=== PATIENT | female | born 1950 | race Caucasian/White ===

== ENCOUNTER → 2019-10-07 09:09 | Outpatient (BNVA) | payer MEDICARE, OTHER, SELFPAY | PROVIDERS: Family Provider Family Medicine; Visit Provider Nurse Practitioner Family | DX: R07.89 Other chest pain (principal); I10 Essential (primary) hypertension; R53.83 Other fatigue; E78.5 Hyperlipidemia, unspecified; R42 Dizziness and giddiness; M54.2 Cervicalgia | CPT/HCPCS: 80053; 80061; 84443; 85025 ==

== ENCOUNTER → 2019-10-12 09:22 | Outpatient (BNVA) | payer MEDICARE, OTHER, SELFPAY | PROVIDERS: Family Provider Family Medicine; Visit Provider Nurse Practitioner Family | DX: R79.89 Other specified abnormal findings of blood chemistry (principal); I10 Essential (primary) hypertension; H93.90 Unspecified disorder of ear, unspecified ear; R74.8 Abnormal levels of other serum enzymes; R89.9 Unspecified abnormal finding in specimens from other organs, systems and tissues | CPT/HCPCS: 84075; 84439; 84481 ==

== ENCOUNTER 2019-11-08 07:49 | Outpatient (CLI) | payer MEDICARE, OTHER, SELFPAY ==
--- NOTE | 2019-11-08 08:45 | USCV_ITS ---
Elham Echevarria Age: 69 Gender: F : 1950 Exam Date: 11/08/2019 08:03 Ordering Phys: Dulce SamuelsP Technologist: Exam Location: [facility] [place] Indication: vertigo Risk Factors: Previous Vascular Surgery: Right Brachial BP: / Left Brachial BP: / Right Left Velocity (cm/s) Spectral Plaque Velocity (cm/s) Spectral Plaque Syst/Diast Broadening Syst/Diast Broadening 74.10/ 13.10 Prox CCA 72.30 / 16.70 62.80/ 17.80 Mid CCA 61.40 / 17.10 59.00/ 17.90 Distal CCA 56.70 / 20.20 45.90/ 16.00 Prox ICA 53.40 / 24.60 55.50/ 23.00 Mid ICA 93.10 / 35.90 57.70/ 24.60 Distal ICA 37.40 / 17.10 46.50 ECA 63.00 0.88 ICA/CCA 1.52 Antegrade Vertebral Antegrade 31.50/ 10.70 cm/s 50.20/ 20.80 cm/s Tri Subclavian Tri 46.40 58.20 FINDINGS Minimal plaques at the bifurcations bilaterally Intimal thickening in the common carotid arteries bilaterally Antegrade flow in the vertebral arteries bilaterally Normal Doppler flow velocities in the external carotid and subclavian arteries bilaterally CONCLUSIONS Minimal plaques bilaterally at the bifurcations and proximal carotid arteries. No significant stenosis, based on the above findings Dr Alana Scott MD [facility] (Electronically Signed) Final Date: 08 November 2019 19:32 S
== END 2019-11-08 07:50 | disposition home or self-care (01) ==
LOC: US 07:53
PROVIDERS: PCP Family Medicine; Visit Provider Nurse Practitioner Family
DX: R42 Dizziness and giddiness (principal)
CPT/HCPCS: 93880

== ENCOUNTER 2019-12-03 07:57 | Outpatient (CLI) | payer MEDICARE, OTHER, SELFPAY ==
--- NOTE | 2019-12-03 08:08 | US_ITS ---
WS: [id number] THYROID ULTRASOUND HISTORY: thyroid tenderness COMPARISON: None available. Right lobe: 4.2 cm x 1.2 cm x 1.1 cm. Volume: 2.9 cm3. Normal size gland. There are a few small nodules which are cystic and solid scattered throughout the gland. These are likely colloid cysts. The largest measuring 6 x 3 x 4 mm. Left lobe: 4.0 cm x 1.0 cm x 0.9 cm. Volume: 1.8 cm3. Normal size gland. There are a few scattered colloid cysts. The largest measuring 5 x 3.4 mm. Isthmus: 0.2 cm. US/US thyroid [id number] IMPRESSION: 1. No evidence for acute thyroiditis. 2. Subcentimeter solid and mixed cystic and solid nodules. Majority of these a re colloid cysts. No suspicious nodule for biopsy to be performed at this time.
== END 2019-12-03 07:58 | disposition home or self-care (01) ==
PROVIDERS: PCP Family Medicine; Visit Provider Nurse Practitioner Family
DX: E07.9 Disorder of thyroid, unspecified (principal)
CPT/HCPCS: 76536

== ENCOUNTER 2020-09-25 08:55 | Outpatient (CLI) | payer MEDICARE, OTHER, SELFPAY ==
[2020-09-25] MEDS: iohexol 300 mg/mL 50 mL Btl PO (09:13)
[2020-09-25 10:27] LABS: Blood Urea Nitrogen 12 mg/dL (8-23); Glomerular Filtration Rate 71.3 mL/min (90-130)
[2020-09-25] MEDS: iohexol 300 mg/mL 100 mL Btl IV (10:39)
--- NOTE | 2020-09-25 11:00 | CT_ITS ---
WS: [id number] CT ABDOMEN AND PELVIS WITH CONTRAST HISTORY: R10.9 - Unspecified abdominal pain TECHNIQUE: Imaging performed of the abdomen and pelvis with IV contrast. Single phase imaging of the abdomen. Coronal and sagittal reformats are submitted. All CT scans at [facility] use at least one of these dose optimization techniques: automated exposure control; mA and/or kV adjustment per patient size (includes targeted exams where dose is matched to clinical indication); or iterativ e reconstruction. IV CONTRAST: Omnipaque 300; 95 mL IV. Oral contrast: Yes. DLP: 1134.39 mGycm COMPARISON: None available. Lower thorax: Lung bases are clear. Heart is normal size. No hiatal hernia. Liver/biliary system: Normal size with no intrahepatic dilatation. Gallbladder: Status post cholecystectomy. Pancreas: Normal size pancreas and pancreatic duct. No adjacent inflammation. Spleen: Normal size spleen. No mass or infarct. Adrenal glands: Normal. Right kidney: Normal size RIGHT kidney. Extrarenal pelvis. Ureter tapers normally with no obstructing stone or mass identified. Lobulated cyst measuring 1.9 x 2.4 cm from the mid kidney. No solid mass. Left kidney: No solid mass or obstruction. Small extrarenal pelvis. Aorta: Mild atherosclerosis with no aneurysm. Lymphadenopathy: None. Free fluid: None. GI tract: Diffuse moderate constipation. The appendix is normal. Numerous diverticula in the sigmoid colon without evidence for acute diverticulitis. No GI tract obstruction. There is very mild narrowin g of the mid transverse colon but no definite mass or obstructive pattern. This area can be further e valuated by colonoscopy. Abdominal wall: Unremarkable abdominal wall. No hernia. Pelvis: Anteverted uterus. There is mild heterogeneity of variable density within the central uterus. No pelvic mass. Bones: L2 hemangioma. Lumbar scoliosis. CT/CT abdomen pelvis w con* [id number] IMPRESSION: 1. Mild diffuse constipation. 2. Sigmoid diverticulosis without evidence for acute diverticulitis. 3. There is very slight change in caliber in the mid transverse colon but no d iscrete mass. This may be an area of peristalsis. Early neoplasm not excluded. Consider follow-up colonoscopy. 4. Prior cholecystectomy. 5. RIGHT renal cyst. 6. Heterogeneity within the central uterus. Cannot exclude endometrial abnorma lity or fibroid. Consider transvaginal pelvic ultrasound.
== END 2020-09-25 08:56 | disposition home or self-care (01) ==
PROVIDERS: PCP Nurse Practitioner Family; Visit Provider Nurse Practitioner Family
DX: R10.9 Unspecified abdominal pain (principal); K59.00 Constipation, unspecified; K57.30 Diverticulosis of large intestine without perforation or abscess without bleeding; Z90.49 Acquired absence of other specified parts of digestive tract; Q61.01 Congenital single renal cyst
CPT/HCPCS: 74177; 82565; 84520; Q9967

== ENCOUNTER 2020-11-01 13:54 | Outpatient (CLI) | payer MEDICARE, OTHER, SELFPAY ==
--- NOTE | 2020-11-01 13:59 | US_ITS ---
WS: [id number] TRANSVAGINAL PELVIC ULTRASOUND HISTORY: pelvic pain COMPARISON: 09/25/2020 Uterus: 5.8 cm x 4.3 cm x 3.9 cm. Anteverted small caliber uterus. There is a large amount shadowing from the myometrium obscuring portions of the endometrium. Multiple fibroids are identified. The larg est is in the RIGHT uterus measuring 3.3 x 3.5 x 2.6 cm. Smaller fibroid with shadowing and calcifica tion in the LEFT uterus measuring 1.2 x 1.5 x 1.4 cm. Endometrium: 0.4 cm. Endometrium is poorly seen throughout its entirety due to the marked shadowing f rom the fibroids. Endometrium is being displaced posteriorly by the fibroids. Right ovary: 1.4 cm x 1.1 cm x 1.6 cm. Small caliber ovary appropriate for age. Normal vascularity. N o additional adnexal mass. Left ovary: 2.0 cm x 0.9 cm x 1.9 cm. Small caliber ovary appropriate for age. Normal vascularity. No additional mass. Minimal amount of free fluid in the cul-de-sac. US/US transvaginal [id number] IMPRESSION: 1. Fibroid uterus. Changes recently seen on CT correspond to numerous fibroids . The largest measures 3.3 x 3.5 x 2.6 cm. 2. Limited visualization of the endometrium due to the fibroids. Endometrium i s being displaced by the fibroids.
== END 2020-11-01 13:55 | disposition home or self-care (01) ==
LOC: RAD 13:57
PROVIDERS: PCP Nurse Practitioner Family; Visit Provider Nurse Practitioner Family
DX: R10.2 Pelvic and perineal pain (principal); D25.9 Leiomyoma of uterus, unspecified
CPT/HCPCS: 76830

== ENCOUNTER → 2020-11-09 08:46 | Outpatient (BNVA) | payer MEDICARE, OTHER, SELFPAY | PROVIDERS: PCP Nurse Practitioner Family; Visit Provider Surgery | DX: R10.9 Unspecified abdominal pain (principal); Z20.822 Contact with and (suspected) exposure to COVID-19 | CPT/HCPCS: 87635 ==

== ENCOUNTER 2020-11-16 08:52 | Day surgery (SDC) | payer MEDICARE, OTHER, SELFPAY ==
[2020-11-13 12:51] VITALS: BMI 25.7
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
[2020-11-16 09:56] VITALS: BP 146/93; PULSE 56; RESP 16; TEMP 36.1; O2SAT 95
[2020-11-16] MEDS: sodium chloride 0.9% 1,000 ML 30 ML IV (10:12)
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
[2020-11-16 12:15] VITALS: BP 103/74; PULSE 58; RESP 16; TEMP 36.1; O2SAT 97
--- NOTE | 2020-11-16 14:46 | ANE.PACU2 ---
Inpatient post-anesthesia follow up: Airway intact: Yes Vital signs: Temperature 97 F Pulse Rate 58 Respiratory Rate 16 Blood Pressure 103/74 Pulse Oximetry 97 Oxygen Delivery Me thod Room Air Oxygen Flow Rate Fraction of Inspir ed Oxygen Hydration adequate: Yes Nausea and vomiting: No Pain level: 2 Mental status: Baseline
== END 2020-11-16 12:50 | disposition home or self-care (01) ==
PROVIDERS: PCP Nurse Practitioner Family; Visit Provider Surgery
PROC: 0DJD8ZZ Inspection of Lower Intestinal Tract, Via Natural or Artificial Opening Endoscopic (ICD-10-PCS; CPT 45378; principal; 2020-11-16 11:00)
DX: R10.9 Unspecified abdominal pain (principal); D12.4 Benign neoplasm of descending colon; D12.0 Benign neoplasm of cecum; K57.30 Diverticulosis of large intestine without perforation or abscess without bleeding; K64.8 Other hemorrhoids; I25.10 Atherosclerotic heart disease of native coronary artery without angina pectoris; Z95.5 Presence of coronary angioplasty implant and graft; E78.5 Hyperlipidemia, unspecified
CPT/HCPCS: 45380; 88305; 96360; 96361; J2704; J7030

== ENCOUNTER → 2021-06-07 15:53 | Outpatient (BNVA) | payer MEDICARE, OTHER, SELFPAY | PROVIDERS: PCP Nurse Practitioner Family; Visit Provider Nurse Practitioner Family | DX: J06.9 Acute upper respiratory infection, unspecified (principal); J01.90 Acute sinusitis, unspecified | CPT/HCPCS: 87400; 87635 ==

== ENCOUNTER 2021-11-13 11:19 | Outpatient (CLI) | payer MEDICARE, OTHER, SELFPAY ==
--- NOTE | 2021-11-13 12:15 | USCV_ITS ---
Elham Echevarria Age: 71 Gender: F : 1950 Exam Date: 11/13/2021 11:43 Ordering Phys: Dulce Samuels-Zahra NERI Technologist: MONTY [place] [facility] [place]ication: Peripheral vascular disease Risk Factors: Previous Vascular Surgery: RIGHT LEFT BP: 130.0 / 80.00 BP: 124.0/ 76.00 0 0 Waveform Velocity (cm/s) Velocity (cm/s) Waveform Triphasic 87.0 Iliac Prox Triphasic 81.6 Iliac Mid Triphasic 115.8 Iliac Distal Triphasic 77.2 SONG LYRICIST Triphasic 88.2 SFA Prox Triphasic 69.5 SFA Mid Triphasic 49.9 SFA Dist Triphasic 33.9 POP Triphasic 45.7 ADJUNCT LECTURER Triphasic 27.5 DPA 1.0 EZEQUIEL FINDINGS Rt ADJUNCT LECTURER 130 Rt DPA 120 Normal Doppler flow pattern and Doppler flow velocities Resting EZEQUIEL 1.0 on the right side. CONCLUSIONS Normal resting EZEQUIEL and Doppler signals suggesting no significant arterial obstruction, in the above-mentioned arteries of the right lower extremity Dr Alana Scott MD [facility] (Electronically Signed) Final Date: 14 November 2021 20:07 S
== END 2021-11-13 11:20 | disposition home or self-care (01) ==
LOC: RAD 11:23
PROVIDERS: PCP Nurse Practitioner Family; Visit Provider Nurse Practitioner Family
DX: I73.9 Peripheral vascular disease, unspecified (principal); M79.604 Pain in right leg
CPT/HCPCS: 93926

== ENCOUNTER 2022-01-08 12:50 | Outpatient (CLI) | payer MEDICARE, OTHER, SELFPAY ==
--- NOTE | 2022-01-08 13:45 | MR_ITS ---
WS: [id number] MRI RIGHT LOWER LEG WITHOUT AND WITH GADOLINIUM ENHANCEMENT. INDICATION: Pain in RIGHT lower leg TECHNIQUE: Coronal T1, coronal STIR, sagittal STIR, sagittal T1, axial T2, axial PD, axial T1 and cor onal T1 and sagittal T1 post gadolinium imaging with fat saturation technique. FINDINGS: Normal fatty bone marrow signal in the tibia and fibula. No edema. No cystic or solid lesions. No abn ormal gadolinium enhancement. Fibula is normal in appearance. Normal visualized intramuscular and sub cutaneous soft tissues. No evidence of metastatic disease. MR/MR lower leg RT wo/w con [id number] IMPRESSION: No suspicious findings in the RIGHT lower leg.
[2022-01-08] MEDS: gadobenate dimeglumine 20 mL vial IV (14:02)
== END 2022-01-08 12:51 | disposition home or self-care (01) ==
LOC: RAD 12:51
PROVIDERS: PCP Nurse Practitioner Family; Visit Provider Nurse Practitioner Family
DX: M79.604 Pain in right leg (principal); Q85.00 Neurofibromatosis, unspecified
CPT/HCPCS: 73720

== ENCOUNTER → 2022-09-04 09:34 | Outpatient (BNVA) | payer MEDICARE, OTHER, SELFPAY | PROVIDERS: PCP Nurse Practitioner Family; Visit Provider Nurse Practitioner Family | DX: M25.50 Pain in unspecified joint (principal); M32.9 Systemic lupus erythematosus, unspecified; I10 Essential (primary) hypertension; E04.1 Nontoxic single thyroid nodule | CPT/HCPCS: 80053; 80061; 84443; 86038; 86431 ==

== ENCOUNTER 2022-09-24 06:17 | Outpatient (CLI) | payer MEDICARE, OTHER, SELFPAY ==
--- NOTE | 2022-09-24 06:30 | US_ITS ---
WS: [id number] THYROID ULTRASOUND HISTORY: E04.1 - Nontoxic single thyroid nodule COMPARISON: 12/03/2019 Right lobe: 1.1 cm x 1.4 cm x 4.6 cm (w x ap x l). Volume: 3.5 cm3. Normal size gland. There are a few scattered nodules which noted on the prior study. The largest is m ixed cystic and solid in the mid gland measuring 6 x 4 x 6 mm. No increased vascularity. No echogenic foci. Left lobe: 1.4 cm x 1.0 cm x 3.9 cm (w x ap x l). Volume: 2.6 cm3. Normal size gland. Hypoechoic nodule with mixed cystic and solid components in the mid LEFT thyroid m easures 10 x 7 x 12 mm. This nodule has slightly increased in size and there is a central mural nodul e with increased vascularity. No additional suspicious or enlarging nodules. Isthmus: 0.2 cm. US/US thyroid [id number] IMPRESSION: 1. Mixed cystic solid nodule in the mid LEFT thyroid. Fine-needle aspiration i s recommended due to the mural nodule with increased vascularity. This nodule h as increased in size. Recommend ultrasound-guided FNA. 2. No additional suspicious or enlarging thyroid nodules.
== END 2022-09-24 06:18 | disposition home or self-care (01) ==
PROVIDERS: PCP Nurse Practitioner Family; Visit Provider Nurse Practitioner Family
DX: E04.1 Nontoxic single thyroid nodule (principal)
CPT/HCPCS: 76536

== ENCOUNTER → 2022-11-27 10:16 | Outpatient (BNVA) | payer MEDICARE, OTHER, SELFPAY | PROVIDERS: PCP Nurse Practitioner Family; Visit Provider Internal Medicine Cardiovascular Disease | DX: E78.5 Hyperlipidemia, unspecified (principal); I10 Essential (primary) hypertension; Z79.899 Other long term (current) drug therapy | CPT/HCPCS: 80048; 80061; 84450; 84460 ==

== ENCOUNTER → 2022-12-19 09:32 | Outpatient (BNVA) | payer MEDICARE, OTHER, SELFPAY | PROVIDERS: PCP Nurse Practitioner Family; Visit Provider Internal Medicine Rheumatology | DX: Z79.899 Other long term (current) drug therapy (principal); R76.8 Other specified abnormal immunological findings in serum; M19.90 Unspecified osteoarthritis, unspecified site; M25.50 Pain in unspecified joint; M70.61 Trochanteric bursitis, right hip; M70.62 Trochanteric bursitis, left hip; Y93.9 Activity, unspecified | CPT/HCPCS: 36415; 80076; 82306; 85025; 85651; 86140; 86160; 86162; 86200; 86235; 86255; 86376; 86800; 99204 ==

== ENCOUNTER → 2023-02-03 14:47 | Outpatient (BNVA) | payer MEDICARE, OTHER, SELFPAY | PROVIDERS: PCP Nurse Practitioner Family; Visit Provider Internal Medicine Rheumatology | DX: M70.61 Trochanteric bursitis, right hip (principal); M70.62 Trochanteric bursitis, left hip | CPT/HCPCS: 20610; J1030 ==

== ENCOUNTER → 2023-02-07 10:01 | Outpatient (BNVA) | payer MEDICARE, OTHER, SELFPAY | PROVIDERS: PCP Nurse Practitioner Family; Referring Provider Nurse Practitioner Family; Visit Provider Internal Medicine | DX: E04.1 Nontoxic single thyroid nodule (principal); E03.8 Other specified hypothyroidism; I10 Essential (primary) hypertension | CPT/HCPCS: 36415; 84439; 84443; 99204 ==

== ENCOUNTER → 2023-02-25 09:57 | Outpatient (BNVA) | payer MEDICARE, OTHER, SELFPAY | PROVIDERS: PCP Nurse Practitioner Family; Visit Provider Internal Medicine Rheumatology | DX: Z79.899 Other long term (current) drug therapy (principal); R76.8 Other specified abnormal immunological findings in serum; M25.50 Pain in unspecified joint; Q85.00 Neurofibromatosis, unspecified; M25.551 Pain in right hip; M25.552 Pain in left hip | CPT/HCPCS: 99214 ==

== ENCOUNTER 2023-03-12 08:11 | Outpatient (CLI) | payer MEDICARE, OTHER, SELFPAY ==
--- NOTE | 2023-03-12 09:30 | US_ITS ---
WS: [id number] ULTRASOUND-GUIDED LEFT THYROID NODULE FNA HISTORY: E04.1 - Nontoxic single thyroid nodule Procedure, risks, and complications were explained to the patient. Consent has been obtained. Prior imaging studies were reviewed including 09/24/2022 and 12/03/2019. The skin is cleansed with ChloraPrep and anesthetized with 1% buffered lidocaine. FNA performed with 25 gauge needles. lead technologist in cytogenetics is present to fix slides. There is a small amount of bleeding in the intramural cystic nodule in the LEFT thyroid after the ini tial biopsy. 3 attempts at FNA were performed. Intranodular bleeding slightly increased during the pr ocedure. Patient was observed for 15 minutes post procedure with no additional bleeding. IMPRESSION: Uncomplicated FNA of a LEFT thyroid nodule. Final pathology results pending.
== END 2023-03-12 08:12 | disposition home or self-care (01) ==
PROVIDERS: PCP Nurse Practitioner Family; Visit Provider Internal Medicine
DX: E04.1 Nontoxic single thyroid nodule (principal); E03.8 Other specified hypothyroidism
CPT/HCPCS: 10005; 88173

== ENCOUNTER 2023-04-05 09:14 | Outpatient (CLI) | payer MEDICARE, OTHER, SELFPAY ==
[2023-04-05 09:50] LABS: Basophils % 0.4 %; Eosinophils # 0.1 10^3/uL (0.0-0.8); Hematocrit 36.1 % (36-47); Lymphocytes # 1.8 10^3/uL (0.8-4.8); Lymphocytes % 35.3 %; Mean Corpuscular HGB Conc 32.4 g/dL (30-55); Mean Corpuscular Hemoglobin 30.3 pg (27-33); Mean Corpuscular Volume 93.5 fl (85-98); Mean Platelet Volume 11.3 fL (7.4-10.4); Monocytes # 0.4 10^3/uL (0.2-0.9); Monocytes % 7.5 %; Neutrophils % 55.6 %; Nucleated Red Blood Cells % 0 %; Platelet Count 158 10^3/cmm (157-399); Red Blood Count 3.86 10^6/uL (3.85-5.65); Red Cell Distribution Width 13.5 % (12.1-15.1); White Blood Count 5.04 10^3/uL (3.29-11.43)
== END 2023-04-05 09:15 | disposition home or self-care (01) ==
PROVIDERS: PCP Nurse Practitioner Family; Visit Provider Internal Medicine Rheumatology
DX: M25.50 Pain in unspecified joint (principal); Q85.00 Neurofibromatosis, unspecified; R76.8 Other specified abnormal immunological findings in serum; Z79.899 Other long term (current) drug therapy
CPT/HCPCS: 36415; 85025

== ENCOUNTER 2023-08-05 08:40 | Outpatient (CLI) | payer MEDICARE, OTHER, SELFPAY ==
--- NOTE | 2023-08-05 08:47 | XRR_ITS ---
PROCEDURE INFORMATION: Exam: XR Left Foot Exam date and time: 08/05/2023 9:05 AM Age: 72 years old Clinical indication: Pain; Foot; Left; Additional info: M79.672 - pain in left foot TECHNIQUE: Imaging protocol: Radiologic exam of the left foot. Views: 3 or more views. COMPARISON: No relevant prior studies available. FINDINGS: Bones/joints: There is a moderate-sized heel spur. There is no fracture identified. There is [id number]-[id number] osteoarthritis of the 1st MTP joint. There is hallux valgus noted. Soft tissues: Normal. XR/XR foot LT min 3V* [id number] IMPRESSION: 1. Moderate-sized heel spur. 2. Yxro-ev-kxltrkup osteoarthritis of the 1st MTP joint. 3. Hallux valgus.
--- NOTE | 2023-08-05 08:47 | XRR_ITS ---
PROCEDURE INFORMATION: Exam: XR Lumbosacral Spine Exam date and time: 08/05/2023 9:05 AM Age: 72 years old Clinical indication: Low back pain; Additional info: M54.50 - low back pain, unspecified TECHNIQUE: Imaging protocol: Radiologic exam of the lumbosacral spine. Views: 2 or 3 views. COMPARISON: CR XR hip RT 2-3V wo/w pel* [id number] 08/05/2023 9:05 AM FINDINGS: Bones/joints: There is dextroscoliosis noted. There is slight grade 1 anterolisthesis of L4 on L5. Otherwise the vertebral body heights and alignment are maintained. There is moderate to advanced degenerative disc disease at L5-S1. There is mild to moderate additional multilevel degenerative disc disease. Soft tissues: Unremarkable. XR/XR lumbar spine 2-3V* [id number] IMPRESSION: 1. Multilevel degenerative disc disease most advanced at L5-S1. 2. No evidence of acute process.
--- NOTE | 2023-08-05 08:47 | XRR_ITS ---
PROCEDURE INFORMATION: Exam: XR Right Hip Exam date and time: 08/05/2023 9:05 AM Age: 72 years old Clinical indication: Hip pain; Right hip; Additional info: M25.551 - pain in right hip TECHNIQUE: Imaging protocol: Radiologic exam of the right hip. Views: 1 view hip with pelvis when performed. COMPARISON: CT abdomen pelvis w con* [id number] 09/25/2020 10:31 AM FINDINGS: Bones/joints: There is minimal right hip periarticular sclerosis. Otherwise the joint spaces preserved. There is no evidence of fracture or dislocation. Soft tissues: Unremarkable. XR/XR hip RT 2-3V wo/w pel* [id number] IMPRESSION: Minimal degenerative right hip changes.
== END 2023-08-05 08:41 | disposition home or self-care (01) ==
LOC: RAD 08:43
PROVIDERS: PCP Nurse Practitioner Family; Visit Provider Nurse Practitioner Family
DX: M19.072 Primary osteoarthritis, left ankle and foot (principal); M77.32 Calcaneal spur, left foot; M20.12 Hallux valgus (acquired), left foot; M51.37 Other intervertebral disc degeneration, lumbosacral region; M25.551 Pain in right hip
CPT/HCPCS: 72100; 73502; 73630

== ENCOUNTER → 2023-08-18 07:50 | Outpatient (BNVA) | payer MEDICARE, OTHER, SELFPAY | PROVIDERS: PCP Nurse Practitioner Family; Visit Provider Podiatrist Foot & Ankle Surgery | DX: M77.42 Metatarsalgia, left foot | CPT/HCPCS: 99203 ==

== ENCOUNTER 2023-08-25 08:37 | Outpatient (CLI) | payer MEDICARE, OTHER, SELFPAY ==
--- NOTE | 2023-08-25 09:00 | US_ITS ---
WS: [id number] ULTRASOUND SOFT TISSUES LEFT foot HISTORY: rule out mortons neuroma left 2nd and 3rd interspace COMPARISON: None available. TECHNIQUE: 2-D and color Doppler imaging is submitted. Ultrasound is directed to the intermetatarsal spaces of the LEFT foot. No soft tissue masses or increased vascularity or fluid collections are noted within the LEFT foot in termetatarsal spaces. IMPRESSION: No LEFT foot neuroma or bursitis identified.
== END 2023-08-25 08:38 | disposition home or self-care (01) ==
LOC: RAD 08:37
PROVIDERS: PCP Nurse Practitioner Family; Visit Provider Podiatrist Foot & Ankle Surgery
DX: G57.62 Lesion of plantar nerve, left lower limb (principal)
CPT/HCPCS: 76882

== ENCOUNTER → 2023-09-15 07:59 | Outpatient (BNVA) | payer MEDICARE, OTHER, SELFPAY | PROVIDERS: PCP Nurse Practitioner Family; Visit Provider Podiatrist Foot & Ankle Surgery | DX: M79.671 Pain in right foot (principal); M79.672 Pain in left foot; M77.42 Metatarsalgia, left foot | CPT/HCPCS: 99213 ==

== ENCOUNTER → 2023-10-23 11:13 | Outpatient (BNVA) | payer MEDICARE, OTHER, SELFPAY | PROVIDERS: PCP Nurse Practitioner Family; Visit Provider Nurse Practitioner Family | DX: I10 Essential (primary) hypertension (principal); R53.83 Other fatigue; I95.9 Hypotension, unspecified | CPT/HCPCS: 80053; 80061; 84443; 85025 ==

== ENCOUNTER 2023-11-14 09:58 | Outpatient (CLI) | payer MEDICARE, OTHER, SELFPAY ==
--- NOTE | 2023-11-14 10:30 | US_ITS ---
WS: [id number] ULTRASOUND THYROID TECHNIQUE: Ultrasound of the thyroid. CLINICAL INFORMATION: R79.89 - Other specified abnormal findings of blood chemi... COMPARISON: 03/12/2023 FINDINGS: Thyroid: Prior FNA of the LEFT thyroid nodule which today measures 8 x 6 mm with central mural nodule similar to previous Right thyroid lobe: 4.2 cm x 1.1 cm x 1.6 cm Spongiform RIGHT thyroid nodule measuring 6 x 5 x 5 mm this is unchanged in appearance compared to pr evious. Left thyroid lobe: 3.6 cm x 1.3 cm x 1.0 cm. Isthmus: 0.2 mm. Cervical lymphadenopathy: None. US/US thyroid [id number] IMPRESSION: 1. Prior FNA of the stable LEFT thyroid nodule which today measures 8 x 6 mm w ith central mural nodule. 2. Spongiform RIGHT thyroid nodule is stable measuring 6 x 5 x 5 mm TIRADS Category 1: Benign (spongiform nodule) (total points = 0) No FNA
== END 2023-11-14 09:59 | disposition home or self-care (01) ==
LOC: RAD 09:58
PROVIDERS: PCP Nurse Practitioner Family; Visit Provider Nurse Practitioner Family
DX: R79.89 Other specified abnormal findings of blood chemistry (principal); E04.1 Nontoxic single thyroid nodule
CPT/HCPCS: 76536

== ENCOUNTER 2023-11-26 07:36 | Outpatient (CLI) | payer MEDICARE, OTHER, SELFPAY ==
--- NOTE | 2023-11-26 07:41 | MR_ITS ---
WS: [id number] MRI LUMBAR SPINE NONCONTRAST TECHNIQUE: Sagittal T1, T2 and STIR imaging. Axial T1 and T2 imaging. CLINICAL INFORMATION: LUMBAR RADICULOPATHY/SPONDYLOSIS/DDD COMPARISON: None. FINDINGS: Mild lumbar curve. No acute compression. Slight anterolisthesis L4 on L5. Incidental hemangioma L2 ve rtebral body. L1-L2: Normal. L2-L3: Mild annular bulge with osteophytic ridging. Narrowing of the LEFT subarticular recess. Mild L EFT and no significant RIGHT foraminal narrowing. Moderate facet arthropathy. L3-L4: Mild disc bulge with osteophytic ridging. Narrowing of the subarticular recess bilaterally. Mo derate facet arthropathy. Mild bilateral foraminal narrowing. Mild central canal stenosis. L4-L5: Slight anterolisthesis. Mild annular bulging with mild central canal stenosis. Narrowing of th e subarticular recess bilaterally. Moderate to advanced facet arthropathy. RIGHT foraminal protrusion with impingement on the exiting RIGHT L4 nerve root with moderate to severe RIGHT foraminal narrowin g. L5-S1: Mild annular bulging. Slight effacement of the ventral thecal sac. Mild to moderate facet arth ropathy. Moderate RIGHT and no significant LEFT foraminal narrowing. Visualized pelvic bony structures: Normal. Paravertebral soft tissues: Normal. Small bilateral renal cysts. Small protrusions in the cervical spine partially visualized on the reed repairer imaging. MR/MR lumbar spine wo con* [id number] IMPRESSION: 1. Mild lumbar curve. No acute compression. No high-grade central canal stenos is. 2. Mild central canal stenosis L4-5 with impingement RIGHT subarticular recess and traversing RIGHT L5 nerve root. 3. RIGHT foraminal protrusion L4-5 with moderate to severe RIGHT foraminal bibi rowing and impingement on the exiting RIGHT L4 nerve root. Recommend correlatio n RIGHT L4 nerve root symptoms. 4. Moderate RIGHT L5-S1 foraminal narrowing.
== END 2023-11-26 07:37 | disposition home or self-care (01) ==
LOC: RAD 07:36
PROVIDERS: PCP Nurse Practitioner Family; Visit Provider Registered Nurse
DX: M47.816 Spondylosis without myelopathy or radiculopathy, lumbar region (principal); M51.36 Other intervertebral disc degeneration, lumbar region; M54.16 Radiculopathy, lumbar region; M43.16 Spondylolisthesis, lumbar region; M47.896 Other spondylosis, lumbar region; M51.26 Other intervertebral disc displacement, lumbar region; M99.64 Osseous and subluxation stenosis of intervertebral foramina of sacral region
CPT/HCPCS: 72148

== ENCOUNTER 2024-01-28 13:39 | Outpatient (CLI) | payer MEDICARE, OTHER, SELFPAY ==
--- NOTE | 2024-01-28 14:00 | XR_ITS ---
WS: [id number] DEXA (DUAL ENERGY X-RAY ABSORPTIOMETRY) Bone mineral density was performed using a AdXpose machine. HISTORY: M81.0 - Age-related osteoporosis without current patholog... COMPARISON: None available. Lumbar spine BMD (L1-L4): 1.087 g/cm2 T score: -0.8 Z score: 0.9 Total hip BMD: Left: 0.900 g/cm2. T score: -0.9 Z score: 0.7 Right: 0.758 g/cm2. T score: -2.0 Z score: -0.5 10 year probability of a major osteoporotic fracture is 13.2%. Scoliosis lumbar spine. XR/XR DEXA axial skeleton* [id number] IMPRESSION: OSTEOPENIA based upon the WHO classification for females.
== END 2024-01-28 13:40 | disposition home or self-care (01) ==
LOC: RAD 13:41
PROVIDERS: PCP Nurse Practitioner Family; Visit Provider Nurse Practitioner Family
DX: Z13.820 Encounter for screening for osteoporosis (principal); M81.0 Age-related osteoporosis without current pathological fracture; M41.86 Other forms of scoliosis, lumbar region; M85.80 Other specified disorders of bone density and structure, unspecified site
CPT/HCPCS: 77080

== ENCOUNTER 2024-02-04 10:32 | Outpatient (CLI) | payer MEDICARE, OTHER, SELFPAY ==
[2024-02-04 11:00] LABS: Basophils % 0.6 %; Eosinophils % 0.6 %; Hematocrit 38.4 % (36-47); Lymphocytes # 0.9 10^3/uL (0.8-4.8); Mean Corpuscular HGB Conc 32.6 g/dL (30-55); Mean Corpuscular Hemoglobin 32.7 pg (27-33); Mean Corpuscular Volume 100.5 fl (85-98); Mean Platelet Volume 10.8 fL (7.4-10.4); Monocytes # 0.3 10^3/uL (0.2-0.9); Monocytes % 6.9 %; Neutrophils # 3.61 10^3/uL (1.8-7.7); Neutrophils % 72.7 %; Nucleated Red Blood Cells % 0 %; Platelet Count 157 10^3/cmm (157-399); Red Blood Count 3.82 10^6/uL (3.85-5.65); Red Cell Distribution Width 14.6 % (12.1-15.1); White Blood Count 4.96 10^3/uL (3.29-11.43)
[2024-02-04 11:17] LABS: Erythrocyte Sedimentation Rate 1 mm/hr (0-15)
[2024-02-04 11:22] LABS: Alanine Aminotransferase 12 U/L (0-33); Albumin Level 4.1 g/dL (3.5-5.2); Alkaline Phosphatase 126 U/L (35-105); Aspartate Amino Transferase 23 U/L (0-32); Globulin 2.6 g/dL (1.3-4.6); Total Bilirubin 0.5 mg/dL (0.15-1.2); Total Protein 6.7 g/dL (6.6-8.7)
== END 2024-02-04 10:33 | disposition home or self-care (01) ==
PROVIDERS: Internal Medicine Rheumatology; PCP Nurse Practitioner Family; Visit Provider Internal Medicine
DX: Z79.899 Other long term (current) drug therapy (principal); R76.8 Other specified abnormal immunological findings in serum
CPT/HCPCS: 36415; 80076; 82565; 85025; 85651; 86140

== ENCOUNTER → 2024-02-05 09:00 | Outpatient (BNVA) | payer MEDICARE, OTHER, SELFPAY | PROVIDERS: PCP Nurse Practitioner Family; Visit Provider Nurse Practitioner Family | DX: I45.10 Unspecified right bundle-branch block (principal); R06.09 Other forms of dyspnea | CPT/HCPCS: 93005 ==

== ENCOUNTER 2024-03-09 10:48 | Outpatient (CLI) | payer MEDICARE, OTHER, SELFPAY ==
[2024-03-09 11:58] LABS: 25 Hydroxy Vitamin D 46 ng/mL (30-100)
== END 2024-03-09 10:49 | disposition home or self-care (01) ==
LOC: LAB 10:49
PROVIDERS: PCP Nurse Practitioner Family; Visit Provider Surgery
DX: M85.80 Other specified disorders of bone density and structure, unspecified site (principal)
CPT/HCPCS: 36415; 82306

== ENCOUNTER → 2024-03-18 09:09 | Outpatient (BNVA) | payer MEDICARE, OTHER, SELFPAY | PROVIDERS: PCP Nurse Practitioner Family; Visit Provider Internal Medicine Rheumatology | DX: Z79.899 Other long term (current) drug therapy (principal); R76.8 Other specified abnormal immunological findings in serum; M25.551 Pain in right hip; M25.552 Pain in left hip; Z71.85 Encounter for immunization safety counseling; M35.9 Systemic involvement of connective tissue, unspecified | CPT/HCPCS: 99214 ==

== ENCOUNTER 2024-07-08 10:14 | Outpatient (CLI) | payer MEDICARE, OTHER, SELFPAY ==
[2024-07-08 10:47] LABS: Basophils % 0.6 %; Eosinophils % 0.8 %; Hematocrit 38.9 % (36-47); Lymphocytes # 0.8 10^3/uL (0.8-4.8); Lymphocytes % 16.7 %; Mean Corpuscular HGB Conc 32.9 g/dL (30-55); Mean Corpuscular Hemoglobin 33.4 pg (27-33); Mean Corpuscular Volume 101.6 fl (85-98); Monocytes # 0.4 10^3/uL (0.2-0.9); Monocytes % 7.3 %; Neutrophils # 3.75 10^3/uL (1.8-7.7); Neutrophils % 74.4 %; Nucleated Red Blood Cells % 0 %; Platelet Count 178 10^3/cmm (157-399); Red Blood Count 3.83 10^6/uL (3.85-5.65); Red Cell Distribution Width 12.7 % (12.1-15.1); White Blood Count 5.04 10^3/uL (3.29-11.43)
[2024-07-08 11:05] LABS: Alanine Aminotransferase 11 U/L (0-33); Albumin Level 4.3 g/dL (3.5-5.2); Alkaline Phosphatase 125 U/L (35-105); Aspartate Amino Transferase 19 U/L (0-32); Globulin 2.7 g/dL (1.3-4.6); Total Bilirubin 0.6 mg/dL (0.15-1.2)
[2024-07-08 11:07] LABS: Erythrocyte Sedimentation Rate 1 mm/hr (0-15)
== END 2024-07-08 10:15 | disposition home or self-care (01) ==
LOC: LAB 10:18
PROVIDERS: PCP Nurse Practitioner Family; Visit Provider Internal Medicine Rheumatology
DX: Z79.899 Other long term (current) drug therapy (principal)
CPT/HCPCS: 80076; 82565; 85025; 85651; 86140

== ENCOUNTER → 2024-07-29 09:14 | Outpatient (BNVA) | payer MEDICARE, OTHER, SELFPAY | PROVIDERS: PCP Nurse Practitioner Family; Visit Provider Internal Medicine Rheumatology | DX: R76.8 Other specified abnormal immunological findings in serum (principal); Z79.899 Other long term (current) drug therapy; M35.9 Systemic involvement of connective tissue, unspecified; M25.551 Pain in right hip; M25.552 Pain in left hip; Z71.85 Encounter for immunization safety counseling | CPT/HCPCS: 99214 ==

== ENCOUNTER 2024-10-25 13:10 | Outpatient (CLI) | payer MEDICARE, OTHER, SELFPAY ==
[2024-10-25 14:48] LABS: Basophils # 0.1 10^3/uL (0.0-0.1); Basophils % 1.1 %; Eosinophils # 0.1 10^3/uL (0.0-0.8); Eosinophils % 2.3 %; Hematocrit 37.6 % (36-47); Lymphocytes # 1.1 10^3/uL (0.8-4.8); Lymphocytes % 24.2 %; Mean Corpuscular Hemoglobin 33.7 pg (27-33); Mean Corpuscular Volume 102.2 fl (85-98); Mean Platelet Volume 10.6 fL (7.4-10.4); Monocytes # 0.5 10^3/uL (0.2-0.9); Monocytes % 10.6 %; Neutrophils % 61.6 %; Nucleated Red Blood Cells % 0 %; Platelet Count 196 10^3/cmm (157-399); Red Blood Count 3.68 10^6/uL (3.85-5.65); Red Cell Distribution Width 13.8 % (12.1-15.1); White Blood Count 4.71 10^3/uL (3.29-11.43)
[2024-10-25 15:02] LABS: Erythrocyte Sedimentation Rate 5 mm/hr (0-15)
[2024-10-25 15:12] LABS: Alanine Aminotransferase 14 U/L (0-33); Albumin Level 4.2 g/dL (3.5-5.2); Alkaline Phosphatase 157 U/L (35-105); Aspartate Amino Transferase 29 U/L (0-32); C Reactive Protein 3.7 mg/L (0.0-4.9); Globulin 2.6 g/dL (1.3-4.6); Total Bilirubin 0.4 mg/dL (0.15-1.2); Total Protein 6.8 g/dL (6.6-8.7)
== END 2024-10-25 13:11 | disposition home or self-care (01) ==
PROVIDERS: PCP Nurse Practitioner Family; Visit Provider Internal Medicine Rheumatology
DX: Z79.899 Other long term (current) drug therapy (principal); R76.8 Other specified abnormal immunological findings in serum; M35.9 Systemic involvement of connective tissue, unspecified
CPT/HCPCS: 36415; 80076; 82565; 85025; 85651; 86140

== ENCOUNTER 2025-01-27 10:54 | Outpatient (CLI) | payer MEDICARE, OTHER, SELFPAY ==
[2025-01-27 11:30] LABS: Hematocrit 36.2 % (36-47); Hemoglobin 12.00 g/dL (11.27-16.99); Mean Corpuscular HGB Conc 33.1 g/dL (30-55); Mean Corpuscular Hemoglobin 32.6 pg (27-33); Mean Corpuscular Volume 98.4 fl (85-98); Nucleated Red Blood Cells % 0 %; Platelet Count 195 10^3/cmm (157-399); Red Blood Count 3.68 10^6/uL (3.85-5.65); White Blood Count 6.41 10^3/uL (3.29-11.43)
[2025-01-27 11:50] LABS: Alanine Aminotransferase 23 U/L (0-33); Albumin Level 4.2 g/dL (3.5-5.2); Alkaline Phosphatase 229 U/L (35-105); Aspartate Amino Transferase 36 U/L (0-32); Globulin 2.7 g/dL (1.3-4.6); Total Protein 6.9 g/dL (6.6-8.7)
== END 2025-01-27 10:55 | disposition home or self-care (01) ==
LOC: LAB 10:55
PROVIDERS: PCP Nurse Practitioner Family; Visit Provider Internal Medicine Rheumatology
DX: M35.9 Systemic involvement of connective tissue, unspecified (principal); Z79.899 Other long term (current) drug therapy; R76.8 Other specified abnormal immunological findings in serum
CPT/HCPCS: 36415; 80076; 82565; 85025; 85651; 86140

== ENCOUNTER → 2025-02-10 09:30 | Outpatient (BNVA) | payer MEDICARE, OTHER, SELFPAY | PROVIDERS: PCP Nurse Practitioner Family; Visit Provider Internal Medicine Rheumatology | DX: R76.8 Other specified abnormal immunological findings in serum (principal); M25.552 Pain in left hip; M25.551 Pain in right hip; Z79.899 Other long term (current) drug therapy; Z71.85 Encounter for immunization safety counseling; M35.9 Systemic involvement of connective tissue, unspecified | CPT/HCPCS: 99214 ==